=== PATIENT | male | born 1980 | race Caucasian/White ===

== ENCOUNTER 2019-01-09 17:07 | Emergency (ER) | payer OTHER ==
[~2019-01-09] VITALS: Ht 182.9 cm; Wt 115.7 kg
[2019-01-09] MEDS ORDERED: KEFLEX500 M1 PO (17:38)
[2019-01-09] MEDS ORDERED: NORCO 5-325 TA1 EAC1 PO (17:38)
[2019-01-09 17:53] VITALS: BP 126/85
--- NOTE | 2019-01-10 14:25 | EKG ---
[place] [address] ELECTROCARDIOGRAM REPORT Name: VICKYERNA Room: [facility]#: [id number] Admission: 01/09/19 Attend Phys: Discharge: 01/09/19 Date of : 84 Report #: [id number] THIS REPORT FOR: //name// [facility] ED Test Date: 2019-01-09 Test Time: 17:12:35 Pat Name: ERNA PERRY Department: Room: Gender: M Family Service Caseworker: [place] : [id number] Requested By: Mynor Villa Order Number: [id number] MD: Carlitos Mcintosh Measurements Intervals [place] Rate: 77 P: 16 WI: 127 QRS: 34 QRSD: 102 T: 50 QT: 370 QTc: 419 Interpretive Statements Sinus rhythm No previous ECG available for comparison Electronically Signed On 01-10-2019 14:25:24 CDT by Carlitos Mcintosh [email or web address] <ELECTRONICALLY SIGNED> By: Lei Mcintosh MD, [facility] 01/10/19 1425 1712 1712 Lei Mcintosh MD, FACC /EPI
== END 2019-01-09 17:53 | disposition home or self-care (01) ==
LOC: M.ERS 17:07
DX: G89.18 Other acute postprocedural pain (principal); N50.82 Scrotal pain